=== PATIENT | male | born 1950 | race Two or more races ===

== ENCOUNTER 2018-03-23 23:32 | Inpatient (IN) | payer MEDICAID ==
[2018-03-23] MEDS ORDERED: NS 500 ML IV ONE (23:37)
[2018-03-23 23:44] LABS: PLATELET COUNT 167 10^3/uL (150-400)
[2018-03-24] MEDS ORDERED: AZITHROMYCIN IV 500 MG in NS 250 ML IV ONE (00:09)
--- NOTE | 2018-03-24 00:12 | EDPHY ---
H & P Stated Complaint: SOB x40 min Time Seen by Provider: 03/23/18 23:50 HPI/ROS: History is obtained via family, patient is Cypriot-speaking only. HPI The patient presents with acute onset of shortness of breath which began about 40 min prior to presentation, brought in by ambulance. The patient was complaining of a headache all throughout the day today, however was active as usual. He went with family to the grocery store and in the car ride home his daughter noticed that he was breathing quickly. When he returned home he had acute onset of shortness of breath which was severe, constant, associated with diaphoresis. His daughter notes that he was shaking during this time and complained that he was feeling cold. Otherwise, he has been taking his medications as prescribed. He has been feeling well otherwise. He has not had any dietary indiscretions. Upon EMS arrival, patient was hypoxic at about 86% on room air which improved with supplemental oxygen. He was tachycardic at about 120. EKG showed sinus tachycardia. . REVIEW OF SYSTEMS Constitutional: No fever, no chills. Eyes: No discharge. ENT: No sore throat. Cardiovascular: No chest pain, no palpitations. Respiratory: No cough, positive for shortness of breath. Gastrointestinal: No abdominal pain, no vomiting. Genitourinary: No hematuria. Musculoskeletal: No back pain. Skin: No rashes. Neurological: No headache. PMHx: Hypertension, cardiomyopathy with EF of 15% on echo from 2013, cardiomyopathy classified is idiopathic Soc Hx: Lives at home with his family PHYSICAL General Appearance: Alert, diaphoretic and tachypneic Eyes: Pupils equal and round no pallor or injection ENT, Mouth: Mucous membranes moist Respiratory: Tachypneic, clear breath sounds bilaterally, no wheeze Cardiovascular: Tachycardic rate and regular rhythm Gastrointestinal: Abdomen is soft and non-tender, no masses, bowel sounds normal Neurological: A&O, moves all extremities Skin: Warm and dry, no rashes Musculoskeletal: Neck is supple non tender Extremities: symmetrical, full range of motion , no lower extremity edema Psychiatric: Patient is oriented X 3, there is no agitation Source: Patient, Family Exam Limitations: No limitations - Personal History Current Tetanus/Diphtheria Vaccine: Yes Current Tetanus Diphtheria and Acellular Pertussis (TDAP): Yes Tetanus Vaccine Date: within last 10 years - Medical/Surgical History Hx Asthma: No Hx Chronic Respiratory Disease: No Hx Diabetes: No Hx Cardiac Disease: Yes Hx Renal Disease: No Hx Cirrhosis: No Hx Alcoholism: No Hx HIV/AIDS: No Hx Splenectomy or Spleen Trauma: No Other PMH: Nonishcemic cardomyopathy, severe left ventricular disfunction, HTN, BPH, Depression - Social History Smoking Status: Former smoker Constitutional: Initial Vital Signs Temperature (C) 39.3 C H 03/23/18 23:38 Heart Rate 113 H 03/23/18 23:38 Respiratory Rate 20 03/23/18 23:38 Blood Pressure 116/87 H 03/23/18 23:38 O2 Sat (%) 93 03/23/18 23:38 O2 Delivery Mode Nasal Cannula O2 (L/minute) 4 Allergies/Adverse Reactions: No Known Allergies Allergy (Verified 03/24/18 08:40) Home Medications: Medication Instructions Recorded Aspirin [Aspirin 81mg (OTC)] 81 mg PO HS 12/24/12 Atorvastatin Calcium [Lipitor 40 40 mg PO HS 03/23/18 mg (*)] Carvedilol [Coreg (*)] 6.25 mg PO HS 03/23/18 Tamsulosin HCl [Flomax 0.4 MG (*)] 0.4 mg PO HS 03/23/18 Acetaminophen [Tylenol ES 500 mg 500 mg PO Q6HRS PRN 03/24/18 (*)] Carboxymethylcellulose 1% [Refresh 1 drop EACHEYE DAILY PRN 03/24/18 Celluvisc (*)] Lisinopril/Hctz 10/12.5 mg 1 ea PO HS 03/24/18 [Zestoretic/Prinzide 10/12.5MG (*)] Medical Decision Making - Diagnostics EKG Interpretation: EKG: Complete interpretation has been separately recorded in the [facility] archive. Summary impression: Sinus tachycardia, poor baseline and difficult to interpret Imaging Results: CT angio of chest demonstrates no pulmonary embolism, no pneumonia, questionable will left ventricle ischemia, discussed with Dr. Frazier of Radiology. Imaging: Discussed imaging studies w/ bingo caller Radiologist, I viewed and interpreted images myself Procedures: Bedside limited cardiac Ultrasound- performed and interpreted by me. Indication: Shortness of breath with history of cardiomyopathy Findings: Dilated left ventricle with diminished ejection fraction, no pericardial effusion Impression: Diminished EF with no pericardial effusion Differential Diagnosis: 68-year-old male with history of hypertension, idiopathic cardiomyopathy with EF of 15% who presents from home brought in by ambulance for acute onset of shortness of breath associated with hypoxia, diaphoresis. Differential diagnosis includes pneumonia, acute decompensated CHF, pulmonary embolism, pneumothorax, aortic dissection. In the emergency department, I met the paramedics at the bedside to obtain their report. IV line was established and patient was given supplemental oxygen. The patient was given a small fluid bolus because of his underlying CHF I did not want to fluid overload him. He was noted to be febrile, tachycardic, hypoxic. Labs demonstrated no leukocytosis, hemoconcentration likely, slightly elevated BNP, negative troponin, elevated lactate at 2.5, D-dimer was positive. Chest x- ray showed cardiomegaly with mild CHF. CT angio of chest demonstrated no PE or pneumonia. The patient was cultured and broad-spectrum antibiotics were ordered. I suspect he has a pneumonia because of his shortness of breath, however he could be bacteremic or have a urinary tract infection as well. I doubt intra-abdominal infection as he does not have any abdominal tenderness. UA returned and was indicative of urinary tract infection. He has received ceftriaxone and I feel this is appropriate coverage. Given his severe CHF with low EF and current hypoxia, I gave him IV fluids, total of 1.5 L, though not the full 30 cc/kilos bolus because I was concerned about putting him into pulmonary edema which would worsen his respiratory status. I will admit him to the hospitalist service and have discussed the case with Dr. Thompson. - Data Points Laboratory Results: Laboratory Results 03/23/18 23:20 03/23/18 23:20 Medications Given: Aspirin (Aspirin) 81 mg PO HS [facility] Stop: 09/20/18 20:59 Last Admin: 03/24/18 22:12 Dose: 81 mg Atorvastatin Calcium (Lipitor) 40 mg PO HS [facility] Stop: 09/20/18 20:59 Last Admin: 03/24/18 22:12 Dose: 40 mg Carvedilol (Coreg) 6.25 mg PO [facility] Stop: 09/20/18 20:59 Last Admin: 03/24/18 22:10 Dose: 6.25 mg Enoxaparin Sodium (Lovenox) 40 mg SC DAILY [facility] Stop: 09/20/18 08:59 Last Admin: 03/24/18 11:48 Dose: 40 mg Lisinopril/HCTZ (Zestoretic) 1 ea PO HS [facility] Stop: 09/20/18 20:59 Last Admin: 03/24/18 22:11 Dose: 1 ea Tamsulosin HCl (Flomax) 0.4 mg PO HS [facility] Stop: 09/20/18 20:59 Last Admin: 03/24/18 22:12 Dose: 0.4 mg Discontinued Medications Sodium Chloride (Ns) 500 mls @ 1,000 mls/hr IV EDNOW ONE PRN Reason: Protocol Stop: 03/24/18 00:06 Last Admin: 03/23/18 23:54 Dose: 500 mls Azithromycin 500 mg/ Sodium (Chloride) 255 mls @ 255 mls/hr IV EDNOW ONE PRN Reason: Protocol Stop: 03/24/18 01:08 Last Admin: 03/24/18 00:45 Dose: 255 mls Ceftriaxone Sodium/Dextrose (Rocephin 1 Gm (Premix)) 50 mls @ 100 mls/hr IV EDNOW ONE PRN Reason: Protocol Stop: 03/24/18 00:37 Last Admin: 03/24/18 00:17 Dose: 50 mls Sodium Chloride (Ns) 1,000 mls @ 0 mls/hr IV EDNOW ONE; Wide Open PRN Reason: Protocol Stop: 03/24/18 00:40 Last Admin: 03/24/18 00:51 Dose: 1,000 mls Point of Care Test Results: Chemistry 03/23/18 23:45 POC Troponin I 0.00 ng/mL ng/mL (0.00-0.08) Departure - Departure Disposition: [facility] Acute Clinical Impression: Fever, Cardiomyopathy Condition: Fair
[2018-03-24] MEDS ORDERED: IOPAMIDOL (ISOVUE 370) 100 ML BTL IV ONE (00:13)
[2018-03-24] MEDS ORDERED: NS 1,000 ML IV ONE (00:39)
--- NOTE | 2018-03-24 00:50 | CPEKG ---
Heart Rate: 96 RR Interval: 625 P-R Interval: 184 QRSD Interval: 128 QT Interval: 380 QTC Interval: 481 P Woodruff: 33 QRS Woodruff: -79 T Wave Woodruff: 97 EKG Severity - ABNORMAL ECG - EKG Impression: SINUS RHYTHM EKG Impression: PROBABLE LEFT ATRIAL ABNORMALITY EKG Impression: RBBB AND LAFB Electronically Signed By: Lauren Prince 24-Mar-2018 07:20:25
[2018-03-24] MEDS ORDERED: ONDANSETRON 4 MG/2 ML VIAL IVP PRN (01:38)
[2018-03-24] MEDS ORDERED: ACETAMINOPHEN 325 MG TAB PO PRN (01:38)
[2018-03-24] MEDS ORDERED: HYDROCODONE/APAP 5/325 TAB PO PRN (01:38)
--- NOTE | 2018-03-24 06:36 | PDGENHP ---
History and Physical - Chief Complaint fever, rigors, shortness of breath - History of Present Illness Source - patient provides history of via medical technologist microbiology. He is a fair historian. is at bedside supplements details. EMR was reviewed and case discussed with ED provider. 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 Patient reports that he was in his usual state of health until late today when he developed fevers, shaking chills and sudden dyspnea. Patient reports a history of dyspnea on exertion that he relates to reported history of occlusive coronary disease. Review of 2003 in cardiac catheterization did not indicate any occlusive disease there is some mild luminal irregularities but otherwise patent vessels with the. Patient reports some chronic lower extremity edema that is mild. He also is [facility]. He denies any cough, rhinorrhea, sore throat, nausea, abdominal pain, new rashes/source. One episode of emesis before arrival that was clear stomach content, no hematemesis. No sick contacts. Patient has noticed a little bit of difficulties initiating stream and requiring increased pressure. No significant increase in frequency, dysuria or hematuria. Patient denies any flank pain. History Information - Allergies/Home Medication List Allergies/Adverse Reactions: No Known Allergies Allergy (Unverified 12/24/12 15:17) Home Medications: Aspirin [Aspirin 81mg (OTC)] 81 mg PO DAILY 12/24/12 [Last Taken 12/24/12] Lisinopril [Zestril 30 mg] 30 mg PO DAILY 12/25/12 [Last Taken Unknown] Nursing Clinical Director Completed 12/25/12 12/25/12 [Last Taken 12/25/12 09:23] Atorvastatin Calcium 03/23/18 [Last Taken Unknown] Carvedilol 03/23/18 [Last Taken Unknown] Flomax 03/23/18 [Last Taken Unknown] I have personally reviewed and updated: family history, medical history, social history, surgical history - Past Medical History CHF Additional medical history: Nonischemic cardiomyopathy last known EF of 20%(2012 ), HTN, HLD, BPH, pre DM, depression, history of pyelo, CVA with minimal sequelae left lower face and and left arm mostly resolved. History nephrolithiasis status post lithotripsy - Surgical History Additional surgical history: Cardiac cath, right inguinal hernia repair, lithotripsy, bladder mass resection per patient - Family History Additional family history: No CAD, no dm 2 - Social History Smoking Status: Former smoker Tobacco Use: Cigarettes Alcohol Use: None Drug Use: None Additional social history: patient lives with his and family. Cor status-full Review of Systems Review of Systems: ROS: 10pt was reviewed & negative except for what was stated in HPI & below Constitutional: Reports: chills, fever, other (No known sick contacts). Denies : recent illness, weakness EENMT: Reports: no symptoms. Denies: blurred vision, nose congestion, sore throat Cardiac: Reports: edema (Chronic at baseline trace.). Denies: chest pain, lightheadedness, palpitations, syncope Respiratory: Reports: shortness of breath (Dyspnea on exertion chronic.). Denies: cough Gastrointestinal: Reports: vomitting Genitourinary: Reports: urgency (Difficulties with stream). Denies: dysuria, flank pain, frequency, hematuria, incontinence Muscolosketal: Reports: no symptoms Skin: Reports: no symptoms. Denies: rash Neurological: Reports: emotional problems (Report of depression without any SI or HI.), headache, pre-existing deficit (Trace left deficits from remote CVA left lower facial droop and left upper extremity.), tremors (Patient reports shaking chills as noted per HPI.). Denies: numbness, tingling, weakness Hematologic/Lymphatic: Reports: no symptoms Physical Exam Physical Exam: Selected Entries 03/23/18 23:38 Blood Pressure Automatic Method Heart Rate 113 H Respiratory 20 Rate O2 Sat (%) 93 Temperature (C) 39.3 C H Blood Pressure 116/87 H Mean Arterial 96 Pressure (MAP) O2 (L/minute) 2 O2 Delivery Nasal Cannula Mode Temperature Oral Source Temp Pulse Resp BP Pulse Ox 37.2 C 92 17 120/71 92 03/24/18 02:44 03/24/18 02:44 03/24/18 02:44 03/24/18 02:44 03/24/18 02:44 O2 (L/minute) 1 Constitutional: no apparent distress, appears nourished, obese, other (NAD. Patient is resting quietly in bed. Pleasant and in good spirits.) Eyes: PERRL, anicteric sclera, EOMI, No scleral injection Ears, Nose, Mouth, Throat: moist mucous membranes, no oral mucosal ulcers, poor dentition (Dentition in fair condition.), other (No nasal discharge.) Cardiovascular: regular rate and rhythym, no murmur, rub, or gallop, pulses symmetric bilaterally, edema (2+ pitting pretibial bilaterally. Patient reports his baseline.) Peripheral Pulses: 1+: dorsalis-pedis (R), dorsalis-pedis (L) Respiratory: no respiratory distress, no rales or rhonchi, clear to auscultation , No expiratory wheeze, No inspiratory crackles, No respiratory distress Gastrointestinal: normoactive bowel sounds, soft, non-tender abdomen, no palpable masses, other (Obese protuberant abdomen.), No distension Genitourinary: no bladder tenderness, No samuels in urethra Skin: warm, normal color, other (Patient's back with patchy dryness.) Musculoskeletal: full muscle strength, other (Sits up independently) Neurologic: AAOx3, sensation intact bilaterally, CN II-XII Intact, No weakness, No facial droop (Trace nasal labial fold flattening) Psychiatric: interacting appropriately, not anxious, not encephalopathic, thought process linear, other (Pleasant gentleman in good spirits. Thought process content and questions are appropriate.) Lab Data & Imaging Review 03/23/18 23:20 03/23/18 23:20 WBC 6.01 10^3/uL (3.80-9.50) 03/23/18 23:20 RBC 6.37 10^6/uL (4.40-6.38) 03/23/18 23:20 Hgb 19.8 g/dL (13.7-17.5) H 03/23/18 23:20 Hct 56.8 % (40.0-51.0) H 03/23/18 23:20 MCV 89.2 fL (81.5-99.8) 03/23/18 23:20 MCH 31.1 pg (27.9-34.1) 03/23/18 23:20 MCHC 34.9 g/dL (32.4-36.7) 03/23/18 23:20 RDW 14.5 % (11.5-15.2) 03/23/18 23:20 Plt Count 167 10^3/uL (150-400) 03/23/18 23:20 MPV 9.8 fL (8.7-11.7) 03/23/18 23:20 Neut % (Auto) 79.9 % (39.3-74.2) H 03/23/18 23:20 Lymph % (Auto) 16.6 % (15.0-45.0) 03/23/18 23:20 [place] % (Auto) 1.5 % (4.5-13.0) L 03/23/18 23:20 Eos % (Auto) 1.2 % (0.6-7.6) 03/23/18 23:20 Baso % (Auto) 0.5 % (0.3-1.7) 03/23/18 23:20 Nucleat RBC Rel Count 0.0 % (0.0-0.2) 03/23/18 23:20 Absolute Neuts (auto) 4.80 10^3/uL (1.70-6.50) 03/23/18 23:20 Absolute Lymphs (auto) 1.00 10^3/uL (1.00-3.00) 03/23/18 23:20 Absolute Monos (auto) 0.09 10^3/uL (0.30-0.80) L 03/23/18 23:20 Absolute Eos (auto) 0.07 10^3/uL (0.03-0.40) 03/23/18 23:20 Absolute Basos (auto) 0.03 10^3/uL (0.02-0.10) 03/23/18 23:20 Absolute Nucleated RBC 0.00 10^3/uL (0-0.01) 03/23/18 23:20 Immature Gran % 0.3 % (0.0-1.1) 03/23/18 23:20 Immature Gran # 0.02 10^3/uL (0.00-0.10) 03/23/18 23:20 D-Dimer 1.10 ug/mLFEU (0.00-0.50) H 03/23/18 23:20 VBG Lactic Acid 1.5 mmol/L (0.7-2.1) 03/24/18 01:55 Sodium 135 mEq/L (135-145) 03/23/18 23:20 Potassium 4.7 mEq/L (3.3-5.0) 03/23/18 23:20 Chloride 103 mEq/L (97-110) 03/23/18 23:20 Carbon Dioxide 20 mEq/l (22-31) L 03/23/18 23:20 Anion Gap 12 mEq/L (8-16) 03/23/18 23:20 BUN 29 mg/dL (7-23) H 03/23/18 23:20 Creatinine 1.2 mg/dL (0.7-1.3) 03/23/18 23:20 Estimated GFR 60 03/23/18 23:20 Glucose 102 mg/dL (70-100) H 03/23/18 23:20 Calcium 9.1 mg/dL (8.5-10.4) 03/23/18 23:20 POC Troponin I 0.00 ng/mL (0.00-0.08) 03/23/18 23:45 NT-Pro-B Natriuret Pep 270 pg/mL (0-125) H 03/23/18 23:20 Urine Color YELLOW 03/24/18 01:15 Urine Appearance HAZY 03/24/18 01:15 Urine pH 5.0 (5.0-7.5) 03/24/18 01:15 Ur Specific [place] > 1.035 (1.002-1.030) H 03/24/18 01:15 Urine Protein 1+ (NEGATIVE) H 03/24/18 01:15 Urine Ketones NEGATIVE (NEGATIVE) 03/24/18 01:15 Urine Blood 2+ (NEGATIVE) H 03/24/18 01:15 Urine Nitrate POSITIVE (NEGATIVE) H 03/24/18 01:15 Urine Bilirubin NEGATIVE (NEGATIVE) 03/24/18 01:15 Urine Urobilinogen NEGATIVE EU (0.2-1.0) 03/24/18 01:15 Ur Leukocyte Esterase 3+ (NEGATIVE) H 03/24/18 01:15 Urine RBC 25-50 /hpf (0-3) H 03/24/18 01:15 Urine WBC 50-182 /hpf (0-3) H 03/24/18 01:15 Ur Epithelial Cells TRACE /lpf (NONE-1+) 03/24/18 01:15 Urine Bacteria 1+ /hpf (NONE SEEN) H 03/24/18 01:15 Urine Glucose NEGATIVE (NEGATIVE) 03/24/18 01:15 Imaging Review: PA and Lateral Chest Clinical Indications: Shortness of breath, fever, possible pneumonia Comparison: June 04, 2008 Findings: There is moderate cardiomegaly, chronic. The pulmonary vascularity remains plethoric, chronically or recurrently. The azygos vein is dramatically dilated, more than previously, measuring 25 mm. There is no pleural effusion or pulmonary edema. There is no focal infiltrate or consolidation. There is retrocardiac bronchial wall thickening consistent with bronchitis or interstitial edema. Impression: 1. Possibly lower lobe bronchitis. No evidence or pneumonia. 2. Chronic compensated CHF. CTA preliminary report: No PE ? LV ischemia aortic atherosclerosis called Harrison Mackay at 12:45 am Visualized and Interpreted Chest x-ray results: Yes Visualized and Interpreted imaging results: Yes Assessment & Plan Assessment: 68-year-old gentleman with a history of nonischemic cardiomyopathy, HTN, HLD, BPH who presents to the ED today with complaints of rigors, fevers, dyspnea. UTI - patient received azithromycin and Rocephin in the ED for concerns of possible pulmonary etiology. Appears patient does have abnormal UA although he is asymptomatic he has had a history in the past of UTI remotely. Previous cultures were reviewed and shows E coli that was resistant to Cipro/Levaquin. will continue with Rocephin and monitor for blood cultures Severe sepsis - patient qualified with elevated lactate some mild acute kidney insufficiency fever. He is without a leukocytosis or hypotension at this time. Patient did receive IV fluid in the emergency department with close attention to his history of severe cardiomyopathy and decreased EF history. Hypoxia and dyspnea - patient without further issues respiratory status cross. He did receive some IV fluids but does not appear to be decompensated as far as his CHF. Patient does note that during the episode of measured hypoxia he was having shaking chills on and possibly breath holding. He does not have any evidence of COPD but does have a remote history of smoking 25 years ago. Patient reports that his respiratory status has completely resolved back to his normal baseline. He does report that he has baseline dyspnea on exertion. It was recommended the patient have outpatient sleep study which is not clear that this was ever done. He also has on elevated BMI which could be contributing to some obesity hypoventilation syndrome versus COPD with a history of tobacco remotely but currently not in exacerbation. Patient receiving 1 liter/minute while at rest on to maintain saturations greater than 90%. Recommended that patient have outpatient PFTs after discharge. AK I - patient also with elevated BUN consistent with some dehydration. He did receive IV fluids in the emergency department will hold off on further supplementation. Patient is able to tolerate p.o. Intake okay. Polycythemia - likely secondary to dehydration. Patient receiving IV fluids as noted above repeat a.m. Labs. Nonischemic Cardiomyopathy (Acute) - monitor patient's fluid status closely for any signs or symptoms that may require diuresis. Does not currently appear decompensated. Patient reports last echocardiogram was 2012. Consider echo if patient's symptoms change or worsen. Chronic compensated systolic CHF - continue patient's home medications and diuretics. Benign essential HTN - blood pressures at this time are acceptable. Resume patient's home antihypertensives as per med rec when available. HLD - continue statin. Patient reports history of coronary artery disease however review of patient's cath in 2012 appears that there is nonocclusive mild irregularities and patient did not require any stenting. Obesity (BMI of 39.7) - mobilize as tolerated. FEN - status post IV fluids in the emergency department. Hold off on further IV fluids secondary to history of severe cardiomyopathy. Electrolyte monitoring and replacement if needed. Cardiac diet has been ordered. PPX-SCDs and Lovenox. Cor status-full Disposition - patient admitted to inpatient status given the severity of his symptoms elevated lactate and sepsis criteria.
[2018-03-24 09:34] LABS: PLATELET COUNT 152 10^3/uL (150-400)
--- NOTE | 2018-03-24 10:26 | PDMN ---
Medical Necessity Medical necessity: [facility] [place] Sepsis and Other Febrile Illness, without Focal Infection, A-3 days. 68 y/o dx w severe sepsis, temp 39.3C, tachycardic, VBG lactic acid 2.5, dehydrated, on oxygen, IV fluids and IV antibiotics required. Blood and urine CX pending. Hx CHF. Anticipate >2MN for ongoing monitoring and treatment.
[2018-03-24] MEDS: ENOXAPARIN 40 MG/0.4 ML SYR SC SCH (11:48)
--- NOTE | 2018-03-24 15:07 | ASMTCMCOM ---
CM Note CM Note Notes: 03/24/2018 Case Management Note Discussed pt during rounds this morning. Pt is undocumented. Emergency Medicaid application completed by [employer]. Pt has primary care through [facility]. There are limited discharge needs that case management can assist with due to insurance. Case Management d/c poc: anticipating independent with follow up as directed. Case Management available if needs change. Date Signed: 03/24/2018 03:06 PM Electronically Signed By:Sera Mendez RN
--- NOTE | 2018-03-24 15:42 | HOSPPROG ---
Hospitalist Progress Note Assessment/Plan: * UTI with severe sepsis -renal US suggests BPH with retention and left hydro, ? stone recurrence -IV ceftriaxone pending culture * BPH with retention -on Flomax -monitor PVR- may need catheter if elevated * Left hydro, h/o kidney stone -check CT abd - kidney stone protocol * Chronic systolic CHF EF 20%, non-ischemic -well compensated, continue current regimen * h/o CVA with residual left weakness * Obesity BMI 39 * Polycythemia - suspect chronic hypoxia -outpatient sleep study Subjective: No new complaints. Objective: Vital Signs Temp Pulse Resp BP Pulse Ox 36.7 C 70 15 126/78 H 92 03/24/18 11:25 03/24/18 11:25 03/24/18 11:25 03/24/18 11:25 03/24/18 15:08 Laboratory Results 03/24/18 09:16 03/24/18 09:16 03/23/18 03/24/18 03/25/18 05:59 05:59 05:59 Intake Total 1530 Output Total 150 1000 Balance 1380 -1000 Renal US - left hydro, BPH CXR viewed, my personal interpretation is - mild CHF - Physical Exam Constitutional: no apparent distress, appears nourished, not in pain Cardiovascular: regular rate and rhythym, no murmur, rub, or gallop Respiratory: no respiratory distress, no rales or rhonchi, clear to auscultation Gastrointestinal: normoactive bowel sounds, soft, non-tender abdomen, no palpable masses Skin: no rashes or abrasions, no fluctuance, no induration Neurologic: AAOx3, sensation intact bilaterally Psychiatric: interacting appropriately, not anxious, not encephalopathic, thought process linear ICD10 Worksheet Patient Problems: Problems Problem Status Onset Cardiomyopathy Acute Fever Acute Hypertensive disorder, systemic arterial Active Pyelonephritis Active
[2018-03-24] MEDS: CARVEDILOL 6.25 MG TAB PO SCH (22:10)
[2018-03-24] MEDS: LISINOPRIL/HCTZ 10/12.5 MG 1 EA TAB PO SCH (22:11)
[2018-03-24] MEDS: TAMSULOSIN HCL 0.4 MG CAP PO SCH (22:12)
[2018-03-24] MEDS: ATORVASTATIN CALCIUM 40 MG TAB PO SCH (22:12)
[2018-03-24] MEDS: ASPIRIN 81 MG CHEWABLE TAB PO SCH (22:12)
[2018-03-25 05:42] LABS: PLATELET COUNT 150 10^3/uL (150-400)
[2018-03-25] MEDS: ENOXAPARIN 40 MG/0.4 ML SYR SC SCH (10:00)
[2018-03-25] MEDS ORDERED: PNEUMOC 13-VAL CONJ-DIP CRM/PF 0.5 ML SYR IM ONE (10:57)
--- NOTE | 2018-03-25 15:08 | HOSPPROG ---
Hospitalist Progress Note Assessment/Plan: 68 yo M w UTI UTI with severe sepsis -renal US suggests BPH with retention and left hydro, ? stone recurrence -IV ceftriaxone pending culture stone not seen on CT BPH with retention -on Flomax -monitor PVR- may need catheter if elevated Left hydro, h/o kidney stone -check CT abd - kidney stone protocol Chronic systolic CHF EF 20%, non-ischemic -well compensated, continue current regimen h/o CVA with residual left weakness Obesity BMI 39 Polycythemia - suspect chronic hypoxia -outpatient sleep study proph: enox Subjective: patient seen w seismic interpreter. some urinary retention. CT w no stone (inages reviewed/interpreted by me) Objective: Vital Signs Temp Pulse Resp BP Pulse Ox 36.7 C 77 16 122/66 H 94 03/25/18 11:23 03/25/18 11:23 03/25/18 11:23 03/25/18 11:23 03/25/18 11:23 Laboratory Results 03/25/18 05:06 03/25/18 05:06 03/24/18 03/25/18 03/26/18 05:59 05:59 05:59 Intake Total 1530 250 Output Total 150 1300 1240 Balance 1380 -1050 -1240 - Physical Exam Constitutional: no apparent distress, appears nourished Eyes: PERRL, anicteric sclera Ears, Nose, Mouth, Throat: moist mucous membranes, hearing normal Cardiovascular: regular rate and rhythym, no murmur, rub, or gallop Respiratory: no respiratory distress, no rales or rhonchi Gastrointestinal: normoactive bowel sounds, soft, non-tender abdomen Genitourinary: no bladder fullness, No samuels in urethra Skin: warm, normal color Musculoskeletal: full muscle strength Neurologic: AAOx3 ICD10 Worksheet Patient Problems: Problems Problem Status Onset Cardiomyopathy Acute Fever Acute Hypertensive disorder, systemic arterial Active Pyelonephritis Active
[2018-03-25] MEDS: ATORVASTATIN CALCIUM 40 MG TAB PO SCH (19:58)
[2018-03-25] MEDS: CARVEDILOL 6.25 MG TAB PO SCH (19:59)
[2018-03-25] MEDS: LISINOPRIL/HCTZ 10/12.5 MG 1 EA TAB PO SCH (19:59)
[2018-03-25] MEDS: ASPIRIN 81 MG CHEWABLE TAB PO SCH (19:59)
[2018-03-25] MEDS: TAMSULOSIN HCL 0.4 MG CAP PO SCH (19:59)
[2018-03-25] MEDS ORDERED: DILTIAZEM 25 MG/5 ML VIAL IVP ONE (22:15)
[2018-03-25] MEDS ORDERED: METOPROLOL TARTRATE 5 MG/5 ML INJ IVP ONE (22:29)
--- NOTE | 2018-03-25 23:26 | CPEKG ---
Heart Rate: 126 RR Interval: 476 QRSD Interval: 128 QT Interval: 368 QTC Interval: 533 QRS [place]: -102 T Wave [place]: 99 EKG Severity - ABNORMAL ECG - EKG Impression: ATRIAL FIBRILLATION EKG Impression: VENTRICULAR PREMATURE COMPLEX EKG Impression: LEFT BUNDLE BRANCH BLOCK Electronically Signed By: Jp Buckley 30-Mar-2018 21:40:13
[2018-03-26] MEDS ORDERED: CARVEDILOL 6.25 MG TAB PO SCH (08:00)
[2018-03-26] MEDS ORDERED: SULFAMETHOX/TMP 800/160 MG 1 TAB PO SCH (09:15)
[2018-03-26] MEDS: ENOXAPARIN 40 MG/0.4 ML SYR SC SCH (10:03)
[2018-03-26 12:13] VITALS: BP 116/74
--- NOTE | 2018-03-26 12:15 | ECHO ---
[email or web address] [address] [address] Main: [phone] Fax: Transthoracic Echocardiogram Name: BALDEMAR BARNES MR#: [id number] Study Date: 03/26/2018 Study Time: 08:50 AM Date of : 1950 Age: 68 year(s) Height: 160 cm (63 in.) Weight: 99.34 kg (219 lb.) BSA: 2.01 m2 Gender: Male Examination: Echo with Definity Indication: CHF, Atrial Fibrillation Image Quality: Technically Difficult Contrast: 0.330 mg I.V. dose of Definity was administered to improve endocardial border definition. Requested by: Leah Thompson BP: 119 mmHg/63 mmHg Heart Rate: Rhythm: Indication: CHF, Atrial Fibrillation Procedure Staff Measurement And Verification Engineer: Lela Guillermo [facility] Reading Physician: Christopher Parra MD Requesting Provider: Conclusions: Dilated left ventricle. Moderately to severely reduced systolic function. EF is 27 %. The dustin/infero septal wall is thin, bright and akinetic. The remaining brambila are hypokinetic. There is a small apical thrombus. Compared to previous echocardiogram there is no significant change. Normal RV function. The left atrium is moderately dilated. Measurements: Chambers Valvular Assessment AV/MV Valvular Assessment TV/PV Normal Normal Normal Name Value Range Name Value Range Name Value Range Ao Becky (MM): 3.6 cm (2.2 cm-3.7 AV Vmax: 1.48 m/s (1 m/s-1.7 PV Vmax: 0.62 m/s (0.6 m/s-0.9 cm) m/s) m/s) IVSd (2D): 1.2 cm (0.6 cm-1.1 AV maxP mmHg ( - ) PV PGmax: 2 mmHg ( - ) cm) LVOT Vmax: 0.63 m/s (0.7 m/s-1.1 LVDd (2D): 6.6 cm (4.2 cm-5.9 m/s) cm) MV E Vmax: 0.74 m/s ( - ) LVDs (2D): 5.9 cm (2.1 cm-4 MV A Vmax: 0.90 m/s ( - ) cm) MV E/A: 0.82 ( - ) LVPWd (2D): 1.0 cm (0.6 cm-1 cm) LVEF (BP): 27 % (>=55 %) RVDd(2D): 2.5 cm (1.9 cm-3.8 cmmm) Continued Measurements: Chambers Valvular Assessment AV/MV Patient: BALDEMAR BARNES Study Date: 03/26/2018 Page 1 of 2 08:50 AM Name Value Name Value LADs Lon.4 cm MV DecTime: 218 m/s LA Area: 24.7 cm2 MV E' Septal: 0.04 m/s LA Volume: 88 ml MV E/E' Septal: 17.00 LA Volume Index: 43.8 ml/m2 MV E/E' Lateral: 21.80 Additional Vessels Name Value Ao Ascendin.2 cm Findings: Left Ventricle: Dilated left ventricle. Moderately to severely reduced systolic function. EF is 27 %. The dustin/infero septal wall is thin, bright and akinetic. The remaining brambila are hypokinetic. There is a small apical thrombus. Diastolic dysfunction is present. . Right Ventricle: Normal size right ventricle. Normal RV function. Left Atrium: The left atrium is moderately dilated. Right Atrium: The right atrium is normal in size. Mitral Valve: The mitral valve is normal in appearance. Trivial to mild mitral regurgitation. No mitral stenosis is present. Aortic Valve: The aortic valve is normal in appearance. The aortic valve is tri-leaflet. Aortic sclerosis is present. There is no aortic valve regurgitation. No aortic valve stenosis is present. Tricuspid Valve: The tricuspid valve appears normal. There is no tricuspid valve regurgitation. Pulmonary artery pressure is not obtained due to inadequate TR jet. Pulmonic Valve: The pulmonic valve is normal in appearance and function. There is no pulmonic regurgitation seen. Aorta: Normal size aortic root measuring 3.6 cm. Normal size ascending aorta measuring 3.2 cm. Pericardium: No pericardial effusion. (No Signature Object) Patient: BALDEMAR BARNES Study Date: 03/26/2018 Page 2 of 2 08:50 AM [id number]
--- NOTE | 2018-03-26 12:41 | GCON ---
[f rep st] CONSULTATION REFERRING PHYSICIAN: Dr. Garcia. 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 The patient had a cardiac catheterization in 2012, which showed luminal irregularities. His cardiomyopathy is nonischemic. The patient has some mild lower extremity edema. He denies any cough, rhinorrhea, sore throat, nausea, vomiting over the past 2 days. He has recovered and is feeling better. HOME MEDICATIONS: Aspirin, lisinopril, atorvastatin, carvedilol, Flomax. PAST MEDICAL HISTORY: Nonischemic cardiomyopathy, hypertension, dyslipidemia, benign prostatic hypertrophy, prediabetes, depression, pyelonephritis, CVA. PAST SURGICAL HISTORY: Cardiac catheterization, right inguinal hernia repair, lithotripsy, bladder mass resection. FAMILY HISTORY: Noncontributory. SOCIAL HISTORY: Ex-smoker. No significant alcohol use. , lives with the family. REVIEW OF SYSTEMS: Other than above is negative. ALLERGIES: None. PHYSICAL EXAM: VITALS: Blood pressure 120/70, pulse of 92, respiratory rate 16. HEENT: Pupils equal, reacting to light, accommodating. GENERAL: The patient is in no apparent distress, appears nourished, obese, resting comfortably, lying flat in bed. CHEST: Good air entry, bilaterally equal. No rales, rhonchi, rub. HEART: S1, S2 regular. No S3. No murmurs. ABDOMEN: Soft, nontender. No guarding or rigidity. Bowel sounds present. EXTREMITIES: No edema. No clubbing. SKIN: Warm. MUSCULOSKELETAL: Full strength. NEUROLOGIC: Deferred. PSYCHIATRIC: Interacting appropriately. Not anxious. LABORATORY DATA: Creatinine of 1.2. The EKG shows normal sinus rhythm, then transitioning to atrial fibrillation. The patient does have atrial fibrillation on the monitor. His chest x-ray appears well-compensated for CHF. IMPRESSION AND PLAN: This is the 68-year-old with nonischemic cardiomyopathy, hypertension, dyslipidemia, who presents to the ER with rigors, fever, and dyspnea. 1. Congestive heart failure, seems to be well compensated at current point in time. He has been followed by [facility] with daily weights. Will not change that protocol. 2. Cardiomyopathy. He is on aspirin, carvedilol, lisinopril, and we will recommend continuing the same. 3. Atrial fibrillation. He has documented atrial fibrillation on EKG. Furthermore, he has a CVA. He is a 68-year-old male with cardiomyopathy. In view of this, Coumadin will be recommended. I have explained to him the risks and benefits. He understands this and is agreeable to it. We will start him on Coumadin and schedule him with [facility]. 4. Left ventricular thrombus. There is a question of LV thrombus, which had been in the past. However, YAMIL ruled it out in 2012. The LV thrombus is back again, seen on transthoracic echo. However, considering we are starting him on Coumadin, no other changes are needed. Thank you for letting us participate in this patient's care. /[id number]/MODL MTDD
--- NOTE | 2018-03-26 12:50 | HOSPPROG ---
Hospitalist Progress Note Assessment/Plan: 68 yo M w UTI UTI with severe sepsis improving bactrim given e coli sensitivities BPH with retention -on Flomax -monitor PVR- may need catheter if elevated Left hydro, h/o kidney stone -check CT abd - kidney stone protocol Chronic systolic CHF EF 20%, non-ischemic -well compensated, continue current regimen h/o CVA with residual left weakness Obesity BMI 39 Polycythemia - suspect chronic hypoxia -outpatient sleep study proph: enox home today > 30 minutes Subjective: episode of AF overnight, now back in sinus. echo w LV thrombus, which is old per records. case d/w dr goldsmith Objective: Vital Signs Temp Pulse Resp BP Pulse Ox 36.7 C 68 18 116/74 90 L 03/26/18 12:00 03/26/18 12:00 03/26/18 12:00 03/26/18 12:00 03/26/18 12:00 Microbiology 03/24/18 01:15 Urine Culture - Final Urine,Clean Catch Escherichia Coli Strep Agalactiae Group B One Rupert Type Laboratory Results 03/25/18 05:06 03/26/18 04:24 03/25/18 03/26/18 03/27/18 05:59 05:59 05:59 Intake Total 250 2825 Output Total 1300 1630 175 Balance -1050 1195 -175 - Physical Exam Constitutional: no apparent distress, appears nourished Eyes: PERRL, anicteric sclera Ears, Nose, Mouth, Throat: moist mucous membranes, hearing normal, ears appear normal Cardiovascular: regular rate and rhythym, no murmur, rub, or gallop Respiratory: no respiratory distress, no rales or rhonchi Gastrointestinal: normoactive bowel sounds, soft, non-tender abdomen Genitourinary: no bladder fullness, No samuels in urethra Skin: warm, normal color Musculoskeletal: full muscle strength Neurologic: AAOx3 Psychiatric: interacting appropriately ICD10 Worksheet Patient Problems: Problems Problem Status Onset Cardiomyopathy Acute Fever Acute Hypertensive disorder, systemic arterial Active Pyelonephritis Active
--- NOTE | 2018-03-26 13:25 | GDS ---
[f rep st] DISCHARGE SUMMARY DISCHARGE DIAGNOSES: 1. Sepsis. 2. Complicated urinary tract infection. 3. Atrial fibrillation. This is a new diagnosis. 4. Systolic heart failure. 5. History of left ventricular thrombus. 6. History of stroke. 7. Hypertension. 8. Benign prostatic hypertrophy with urinary retention. HOSPITAL COURSE: Please see admission history and physical by Dr. Leah Thompson. The patient present ed with shortness of breath. He was found to have pyuria with a positive urine culture that is predo minantly E coli. Interestingly, it was intermediate for ceftriaxone which he treated. His septic ph ysiology improved. The patient is doing well with plans for discharge. The night before that he dev eloped atrial fibrillation, which as far as we know is a new finding for him. Subsequent echocardiog danis showed an EF of 25%, which has been improved. He had some focal wall motion abnormalities and a small apical thrombus. He had not been on anticoagulation. Echocardiograms here in 2013 have demons trated similar findings, although a YAMIL perhaps showed no thrombus. He was initiated on warfarin and discharged on Bactrim. He has a followup with [facility]. I wrote [facility] a letter wi th a summary of this hospital stay and my phone number for clarification of the details. /[id number]/MODL
--- NOTE | 2018-03-26 13:53 | ASDISCHSUM ---
Discharge Information Plan Status:Home with No Needs Medically Cleared to Leave:03/26/2018 Discharge Date:03/26/2018 CM D/C Disposition:Home, Routine, Self-Care ADT D/C Disposition: Projected Discharge Date:03/26/2018 Transportation at D/C:Family Discharge Delay Reason: Follow-Up Date:03/26/2018 Discharge Slot: Final Diagnosis: Placement Information Patient Contact Information Contact Name:ELISHA Relationship: Address:[address] [place] [address] Work Phone: City:[place] Alternate Phone: State/Zip Code:[place] [address] Email: Financial Information Financial Class:Self-Pay Primary Plan Desc:SELF PAY Primary Plan Number: Secondary Plan Desc: Secondary Plan Number: Assessment Information LACE LACE Length of stay for Answers: 2 days current admission Acuity / Level of Answers: Yes Care: Did the patient have an inpatient admission? Comorbidities - select Answers: Cerebrovascular disease all that apply (CVA, TIA, aneurysms, vasc ular dementia) Congestive heart failure Diabetes (uncontrolled or controlled) Other Notes: HTN; HLD # of Emergency department Answers: 1-2 visits in the last 6 months Social determinants Answers: Mental health diagnosis (anxiety, depression, pers onality disorders, etc.) Score: 14 Date Signed: 03/26/2018 01:51 PM Electronically Signed By:Sera Mendez RN [facility] Progress Note CM Note CM Note Notes: 03/24/2018 Case Management Note Discussed pt during rounds this morning. Pt is undocumented. Emergency Medicaid application completed by [employer]. Pt has primary care through [facility]. There are limited discharge needs that case management can assist with due to insurance. Case Management d/c poc: anticipating independent with follow up as directed. Case Management available if needs change. Date Signed: 03/24/2018 03:06 PM Electronically Signed By:Sera Mendez RN Case Management Discharge Plan Note Case Management Discharge Discharge Order Complete? Answers: Yes Patient to Obtain Answers: Independently Medications Discharge Comments Notes: 03/26/2018 Case Management Note Pt to discharge independent with family support. Pt primary care is through [facility]. No further case management d/c needs identified. Date Signed: 03/26/2018 01:52 PM Electronically Signed By:Sera Mendez RN Intervention Information
[2018-03-26] MEDS ORDERED: WARFARIN SODIUM 5 MG TAB PO ONE ×2 (14:00→16:00)
== END 2018-03-26 14:21 | disposition home or self-care (01) | DRG 872 ==
LOC: EDUNIT# → F2W 03-24 02:16
PROVIDERS: ADMIT Family Medicine; ATTEND Internal Medicine
DX: A41.51 Sepsis due to Escherichia coli [E. coli] (principal); I50.22 Chronic systolic (congestive) heart failure; B96.20 Unspecified Escherichia coli [E. coli] as the cause of diseases classified elsewhere; I48.91 Unspecified atrial fibrillation; I42.9 Cardiomyopathy, unspecified; N39.0 Urinary tract infection, site not specified; N17.9 Acute kidney failure, unspecified; I11.0 Hypertensive heart disease with heart failure; N40.1 Benign prostatic hyperplasia with lower urinary tract symptoms; F32.9 Major depressive disorder, single episode, unspecified; R73.03 Prediabetes; R33.9 Retention of urine, unspecified; I25.10 Atherosclerotic heart disease of native coronary artery without angina pectoris; E78.5 Hyperlipidemia, unspecified; E86.0 Dehydration; R09.02 Hypoxemia; D75.1 Secondary polycythemia; E66.9 Obesity, unspecified; I69.392 Facial weakness following cerebral infarction; I69.332 Monoplegia of upper limb following cerebral infarction affecting left dominant side; Z68.39 Body mass index [BMI] 39.0-39.9, adult; Z87.891 Personal history of nicotine dependence
CPT/HCPCS: 84484-PO; 96365; 97161-GP; 97165-GO; G0009; J0456; J0696; J1650; Q9967

== ENCOUNTER 2019-01-22 17:08 | Emergency (ER) | payer MEDICAID, OTHER ==
[2019-01-22] MEDS ORDERED: PHENAZOPYRIDINE HCL 200 MG TAB PO ONE (18:09)
[2019-01-22] MEDS ORDERED: SULFAMETHOX/TMP 800/160 MG 1 TAB PO ONE (18:09)
[2019-01-22] MEDS ORDERED: HYDROCODONE/APAP 5/325 TAB PO ONE (18:09)
--- NOTE | 2019-01-22 18:09 | EDPHY ---
H & P Stated Complaint: Pt c/o urgency, frequency, burning with urination Time Seen by Provider: 01/22/19 17:40 HPI/ROS: CHIEF COMPLAINT: Dysuria HISTORY OF PRESENT ILLNESS: 68-year-old male with prior history of UTI presents with dysuria and urinary frequency. Onset of dysuria yesterday evening. Dysuria is severe, consisting of burning in the penis and suprapubic discomfort. No nausea, vomiting or back pain. No known fever. REVIEW OF SYSTEMS: complete 10 point ROS reviewed and is negative except for the noted elements in the HPI - Personal History Tetanus Vaccine Date: within last 10 years - Medical/Surgical History Hx Asthma: No Hx Chronic Respiratory Disease: No Hx Diabetes: No Hx Cardiac Disease: Yes Hx Renal Disease: No Hx Cirrhosis: No Hx Alcoholism: No Hx HIV/AIDS: No Hx Splenectomy or Spleen Trauma: No Other PMH: Nonishcemic cardomyopathy, severe left ventricular disfunction, HTN, BPH, Depression - Social History Smoking Status: Former smoker Alcohol Use: Sober Drug Use: None - Physical Exam Exam: General Appearance: Alert, pleasant, appears uncomfortable Eyes: Pupils equal and round, no conjunctival pallor ENT, Mouth: Mucous membranes moist Neck: Normal inspection Respiratory: Lungs are clear to auscultation Cardiovascular: Regular rate and rhythm Gastrointestinal: Abdomen is soft and nontender Back: No CVA tenderness Neurological: A&O, nonfocal, normal gait Skin: Warm and dry Extremities: Normal inspection Psychiatric: Mood and affect normal Constitutional: Initial Vital Signs Temperature (C) 37 C 01/22/19 17:09 Heart Rate 83 01/22/19 17:09 Respiratory Rate 22 H 01/22/19 17:09 Blood Pressure 156/102 H 01/22/19 17:09 O2 Sat (%) 91 L 01/22/19 17:09 O2 Delivery Mode Room Air Allergies/Adverse Reactions: No Known Allergies Allergy (Verified 03/24/18 08:40) Home Medications: Medication Instructions Recorded Aspirin [Aspirin 81mg (*)] 81 mg PO HS 12/24/12 Atorvastatin Calcium [Lipitor 40 40 mg PO HS 03/23/18 mg (*)] Tamsulosin HCl [Flomax 0.4 MG (*)] 0.4 mg PO HS 03/23/18 Acetaminophen [Tylenol ES 500 mg 500 mg PO Q6HRS PRN 03/24/18 (*)] Carboxymethylcellulose 1% [Refresh 1 drop EACHEYE DAILY PRN 03/24/18 Celluvisc (*)] Lisinopril/Hctz 10/12.5 mg 1 ea PO HS 03/24/18 [Zestoretic/Prinzide 10/12.5MG (*)] Carvedilol [Coreg (*)] 6.25 mg PO BIDMEAL #60 tab 03/26/18 Sulfamethox/Tmp 800/160 mg 1 ea PO BID #10 tab 03/26/18 [Bactrim DS] Warfarin Sodium 5 mg PO HS #30 tablet 03/26/18 Hydrocodone/APAP 5/325 [[place] 1 - 2 tab PO Q4H PRN #10 tab 01/22/19 5/325] Phenazopyridine HCl [Pyridium] 200 mg PO TID #10 tab 01/22/19 Sulfamethox/Tmp 800/160 mg 1 tab PO BID #40 tab 01/22/19 [Bactrim Ds] Medical Decision Making ED Course/Re-evaluation: This patient presents pain UTI. Prior urine cultures reviewed. h/o EColi, with multiple abx resistance. I will treat him initially with Bactrim, as prior UTI's sensitive to Bactrim. A urine culture is pending. He was given Pyridium and hydrocodone for pain. Warning signs discussed. Differential Diagnosis: Differential diagnosis includes though it is not limited to kidney stone, appendicitis, cholecystitis, diverticulitis, pyelonephritis, bowel perforation, small bowel obstruction. - Data Points Laboratory Results: 01/22/19 17:11 Urine Color JONATHAN Urine Appearance HAZY Urine pH 7.0 (5.0-7.5) Ur Specific [place] 1.004 (1.002-1.030) Urine Protein 3+ H (NEGATIVE) Urine Ketones NEGATIVE (NEGATIVE) Urine Blood 1+ H (NEGATIVE) Urine Nitrate POSITIVE H (NEGATIVE) Urine Bilirubin NEGATIVE (NEGATIVE) Urine Urobilinogen 4.0 EU H EU (0.2-1.0) Ur Leukocyte Esterase 2+ H (NEGATIVE) Urine RBC 25-50 /hpf H /hpf (0-3) Urine WBC 50-182 /hpf H /hpf (0-3) Ur Epithelial Cells TRACE /lpf /lpf (NONE-1+) Urine Bacteria 3+ /hpf H /hpf (NONE SEEN) Urine Glucose NEGATIVE (NEGATIVE) Departure - Departure Disposition: Home, Routine, Self-Care Clinical Impression: Urinary tract infection Condition: Good Instructions: Urinary Tract Infection in Men (ED) Referrals: Patient,NotPresent [Primary Care Provider] - As per Instructions Prescriptions: Hydrocodone/APAP 5/325 [Ash 5/325] 1 - 2 tab PO Q4H PRN #10 tab PRN Reason: Pain, Moderate Phenazopyridine HCl [Pyridium] 200 mg PO TID #10 tab Sulfamethox/Tmp 800/160 mg [Bactrim Ds] 1 tab PO BID #40 tab
[2019-01-22 18:52] VITALS: BP 149/99
== END 2019-01-22 18:52 | disposition home or self-care (01) ==
DX: N39.0 Urinary tract infection, site not specified (principal)

== ENCOUNTER 2019-01-23 01:59 | Emergency (ER) | payer MEDICAID, OTHER ==
--- NOTE | 2019-01-23 02:47 | EDPHY ---
H & P Stated Complaint: pain in groin Time Seen by Provider: 01/23/19 02:31 HPI/ROS: Chief Complaint: Pelvic pain HPI: 68-year-old male who was seen here approximately 8 hr ago and diagnosed with urinary tract infection. He has had 1 week of urinary urgency and frequency in general pelvic pain. His urinalysis was consistent with UTI. He has a history of frequent UTIs in the past. Prior cultures showed a sensitivity to Bactrim. He was started on Bactrim. EMS hydrocodone. He is coming back this morning because he is having increasing pain and decreasing urination. No fevers or chills. No nausea or vomiting. No chest pain shortness of breath. He has never seen a urologist. Does not have a history of prostate disease that they are aware of. ROS: 10 systems were reviewed and were negative except those elements noted in the HPI. PMH: Coronary artery disease, hypertension, UTIs in the past Social History: No smoking, no alcohol, no recreational drug use Family History: non-contributory Physical Exam: Gen: Awake, Alert, No Distress HEENT: Nose: no rhinorrhea Eyes: PERRLA, EOMI Mouth: Moist mucosa Neck: Supple, no JVD Chest: nontender, lungs clear to auscultation Heart: S1, S2 normal, no murmur Abd: Soft, non-tender, no guarding Back: no CVA tenderness, no midline tenderness Ext: no edema, non-tender Skin: no rash Neuro: CN II-XII intact, Sensation grossly intact, Strength 5/5 in bilateral upper and lower extremities - Personal History Current Tetanus/Diphtheria Vaccine: Yes Current Tetanus Diphtheria and Acellular Pertussis (TDAP): Yes Tetanus Vaccine Date: within last 10 years - Medical/Surgical History Hx Asthma: No Hx Chronic Respiratory Disease: No Hx Diabetes: No Hx Cardiac Disease: Yes Hx Renal Disease: No Hx Cirrhosis: No Hx Alcoholism: No Hx HIV/AIDS: No Hx Splenectomy or Spleen Trauma: No Other PMH: Nonishcemic cardomyopathy, severe left ventricular disfunction, HTN, BPH, Depression - Social History Smoking Status: Former smoker Constitutional: Initial Vital Signs Temperature (C) 36.6 C 01/23/19 02:06 Heart Rate 82 01/23/19 02:06 Respiratory Rate 16 01/23/19 02:06 Blood Pressure 136/90 H 01/23/19 02:06 O2 Sat (%) 97 01/23/19 02:06 O2 Delivery Mode Room Air Allergies/Adverse Reactions: No Known Allergies Allergy (Verified 03/24/18 08:40) Home Medications: Medication Instructions Recorded Aspirin [Aspirin 81mg (*)] 81 mg PO HS 12/24/12 Atorvastatin Calcium [Lipitor 40 40 mg PO HS 03/23/18 mg (*)] Tamsulosin HCl [Flomax 0.4 MG (*)] 0.4 mg PO HS 03/23/18 Acetaminophen [Tylenol ES 500 mg 500 mg PO Q6HRS PRN 03/24/18 (*)] Carboxymethylcellulose 1% [Refresh 1 drop EACHEYE DAILY PRN 03/24/18 Celluvisc (*)] Lisinopril/Hctz 10/12.5 mg 1 ea PO HS 03/24/18 [Zestoretic/Prinzide 10/12.5MG (*)] Carvedilol [Coreg (*)] 6.25 mg PO BIDMEAL #60 tab 03/26/18 Sulfamethox/Tmp 800/160 mg 1 ea PO BID #10 tab 03/26/18 [Bactrim DS] Warfarin Sodium 5 mg PO HS #30 tablet 03/26/18 Hydrocodone/APAP 5/325 [[place] 1 - 2 tab PO Q4H PRN #10 tab 01/22/19 5/325] Phenazopyridine HCl [Pyridium] 200 mg PO TID #10 tab 01/22/19 Sulfamethox/Tmp 800/160 mg 1 tab PO BID #40 tab 01/22/19 [Bactrim Ds] Medical Decision Making ED Course/Re-evaluation: 68-year-old male recently diagnosed with urinary tract infection complaining of difficulty urinating. He has 750 mL of urine in his bladder on bladder scan. Caballero catheter is been placed. [place] tinged urine consistent with peridium has flowed freely. He is already on appropriate antibiotics. Plan will be to leave his Caballero catheter in place. Discharge with follow-up with Urology in 2 days. Continue his current antibiotics. Patient is feeling significantly improved after Caballero catheter placement. Departure - Departure Disposition: Home, Routine, Self-Care Clinical Impression: Urinary tract infection, Urinary retention Condition: Good Instructions: Urinary Retention in Men (ED), Urinary Tract Infection in Men (ED ), Caballero Catheter Placement and Care (ED) Additional Instructions: Please continue taking your medications as prescribed. Follow up with Urology in 2-3 days for Caballero catheter removal and further evaluation. Return to the emergency department for increasing pain, fevers, chills, catheter not draining, confusion, or any other concerns. Referrals: Ricarda Chandra [Primary Care Provider] - As per Instructions
[2019-01-23 03:17] VITALS: BP 121/64
== END 2019-01-23 03:15 | disposition home or self-care (01) ==
DX: N39.0 Urinary tract infection, site not specified (principal); R33.9 Retention of urine, unspecified; I11.0 Hypertensive heart disease with heart failure; I25.10 Atherosclerotic heart disease of native coronary artery without angina pectoris